=== PATIENT | female | born 1975 | race Hispanic/Latino ===

== ENCOUNTER 2018-01-24 22:34 | Emergency (ER) | payer SELFPAY ==
[2018-01-24] MEDS ORDERED: Ibuprofen 200 MG TAB ONE (23:13)
[2018-01-24] MEDS ORDERED: traMADol HCl 50 MG TAB ONE (23:13)
== END 2018-01-24 23:32 | disposition home or self-care (01) ==
LOC: ERS 22:34
DX: K04.7 Periapical abscess without sinus (principal); K02.9 Dental caries, unspecified; I10 Essential (primary) hypertension; E05.90 Thyrotoxicosis, unspecified without thyrotoxic crisis or storm
CPT/HCPCS: 99283

== ENCOUNTER 2018-03-13 10:14 | Emergency (ER) | payer SELFPAY ==
[2018-03-13] MEDS ORDERED: Fluorescein Opthalmic Strip ONE (10:38)
[2018-03-13] MEDS ORDERED: Proparacaine 0.5% Opth 15 ML BOT ONE (10:38)
== END 2018-03-13 12:25 | disposition home or self-care (01) ==
LOC: ERS 10:14
DX: H57.12 Ocular pain, left eye (principal); H57.11 Ocular pain, right eye; E21.3 Hyperparathyroidism, unspecified; I10 Essential (primary) hypertension
CPT/HCPCS: 99283

== ENCOUNTER 2018-06-17 11:43 | Emergency (ER) | payer SELFPAY | END 2018-06-17 13:13 | disposition home or self-care (01) | LOC: ERS 11:43 | DX: M27.3 Alveolitis of jaws (principal); I10 Essential (primary) hypertension; F32.9 Major depressive disorder, single episode, unspecified; Z79.899 Other long term (current) drug therapy | CPT/HCPCS: 99284 ==

== ENCOUNTER 2019-07-13 19:21 | Emergency (ER) | payer SELFPAY ==
[~2019-07-13 19:21] MED LIST: Iopamidol-370 76% 500 ML 1 ML ONE
[2019-07-13 21:14] LABS: #Basophils 0.1 thou/uL (0.0-0.2); #Eosinphils 0.1 thou/uL (0.0-0.7); #Lymphocytes 1.7 thou/uL (1.20-3.40); #Monocytes 0.4 thou/uL (0.11-0.59); #Neutrophils 7.2 thou/uL (1.40-6.50); %Basophils 0.7 % (0.0-1.0); %Eosinophils 0.8 % (0.0-10.0); %Monocytes 4.5 % (0.0-10.0); Hemoglobin 13.4 g/dL (12.0-16.0); Mean Corpuscular HGB CONC 34.2 g/dL (32.0-36.0); Mean Corpuscular Hemoglobin 29.9 pg (27.0-31.0); Mean Corpuscular Volume 87.4 fL (78.0-98.0); Mean Platelet Volume 8.2 fL (7.4-10.4); Platelet Count 232 thou/uL (130-400); RBC Distribution Width 12.4 % (11.5-14.5); Red Blood Cell (RBC) Count 4.49 mill/uL (4.20-5.40); White Blood Cell (WBC) Count 9.5 thou/uL (4.8-10.8)
[2019-07-13 21:18] LABS: Bacteria/HPF None Seen HPF (None Seen); Bilirubin Negative (Negative); Blood, Urine Trace (Negative); Clarity Clear (Clear); Glucose, Urine (Dipstick) Normal (Negative); Leukocyte Negative Leu/uL (Negative); Nitrite Negative (Negative); Protein, Urine (Dipstick) Negative (Neg-Trace); RBC/HPF 0-3 HPF (0-3); Squamous Epithelial 0-3 HPF (0-3); Urobilinogen Normal mg/dL (Less than 2); WBC/HPF 0-3 HPF (0-3)
--- NOTE | 2019-07-13 21:32 | CT ---
CTA CHEST WITH CONTRAST: 07/13/19 Axial tomograms obtained with multiplanar reconstruction and 3D postprocessing. INDICATIONS: Dyspnea. Cough. Pulmonary arteries are suboptimally opacified. No evidence of proximal pulmonary embolus to the segme ntal level. The lung brown are clear. No infiltrate. No effusion. Mediastinum unremarkable. Upper abdomen unremarkable. IMPRESSION: 1. No evidence of pulmonary embolus to the segmental level. 2. No acute lung process. POS: [facility]
[2019-07-13 21:38] LABS: ALT (SGPT) 34 U/L (8-55); AST (SGOT) 32 U/L (5-34); Albumin 4.2 g/dL (3.5-5.0); Alkaline Phosphatase 86 U/L (40-110); Anion Gap 12 mmol/L (10-20); BUN (Urea Nitrogen) 10 mg/dL (7.0-18.7); Bilirubin, Total 0.3 mg/dL (0.2-1.2); CK (CPK) 187 U/L (29-168); Calc. Creatinine Clearance 0 mL/min (70-130); Calcium 8.9 mg/dL (7.8-10.44); Carbon Dioxide 22 mmol/L (22-29); Chloride 107 mmol/L (98-107); Estimated GFR-MDRD 83; Globulin 3.1 g/dL (2.4-3.5); Glucose 190 mg/dL (70-105); Potassium 3.4 mmol/L (3.5-5.1); Protein, Total 7.3 g/dL (6.0-8.3); Sodium 138 mmol/L (136-145)
== END 2019-07-13 23:30 | disposition home or self-care (01) ==
LOC: ERS 19:21
DX: J06.9 Acute upper respiratory infection, unspecified (principal); E03.9 Hypothyroidism, unspecified; I10 Essential (primary) hypertension; F32.9 Major depressive disorder, single episode, unspecified; Z79.899 Other long term (current) drug therapy
CPT/HCPCS: 71275; 80053; 81003; 81015; 82550; 83880; 84484; 85025; 87081; 87430; 87804; 93005; 96360; Q9967

== ENCOUNTER 2020-11-04 09:15 | Outpatient (CLI) | payer OTHER | END 2020-11-04 09:16 | disposition home or self-care (01) | LOC: BICRAD 09:15 | PROVIDERS: ATTEND Family Medicine | DX: R05 Cough (principal) | CPT/HCPCS: 71046 ==

== ENCOUNTER 2021-07-15 07:38 | Outpatient (CLI) | payer OTHER | END 2021-07-15 07:39 | disposition home or self-care (01) | LOC: BICRAD 07:38 | PROVIDERS: ATTEND Family Medicine | DX: M25.562 Pain in left knee (principal); M25.572 Pain in left ankle and joints of left foot; M19.072 Primary osteoarthritis, left ankle and foot; M79.89 Other specified soft tissue disorders ==

== ENCOUNTER 2022-07-15 18:03 | Emergency (ER) | payer SELFPAY ==
[2022-07-15] MEDS ORDERED: Ketorolac Tromethamine 30 MG/ML VIAL ONE (19:27)
[2022-07-15 21:28] LABS: SARS-CoV-2 NAA Rapid Test Not Detected (NotDetected)
[2022-07-15] MEDS ORDERED: Acetaminophen 500 MG TAB ONE ×2 (21:36→21:38)
[2022-07-15 21:40] LABS: Bacteria/HPF 4+ HPF (None Seen); Bilirubin Negative (Negative); Blood, Urine 1+ (Negative); Clarity Turbid (Clear); Glucose, Urine (Dipstick) Normal (Negative); Ketone, Urine Negative (Negative); Leukocyte 500 Leu/uL (Negative); Nitrite 2+ (Negative); Protein, Urine (Dipstick) 10 mg/dL (Neg-Trace); RBC/HPF 0-3 HPF (0-3); Renal Epithelial 0-3 HPF (None Seen); Specific Gravity, Urine 1.016 (1.002-1.036); Squamous Epithelial 0-3 HPF (0-3); Urobilinogen Normal mg/dL (Less than 2); WBC/HPF Greater than 50 HPF (0-3); pH, Urine 5.5 (5.0-9.0)
== END 2022-07-15 22:13 | disposition home or self-care (01) ==
LOC: ERS 18:03
DX: N39.0 Urinary tract infection, site not specified (principal); M54.9 Dorsalgia, unspecified; E66.01 Morbid (severe) obesity due to excess calories; I10 Essential (primary) hypertension; E03.9 Hypothyroidism, unspecified; Z20.822 Contact with and (suspected) exposure to COVID-19
CPT/HCPCS: 71045; 81003; 81015; 87077; 87086; 87186; 93005; 96372; J1885